=== PATIENT | male | born 1990 | race Caucasian/White ===

== ENCOUNTER 2016-05-31 20:49 | Emergency (ER) | payer SELFPAY ==
[2016-05-31] MEDS ORDERED: Lidocaine 1% with EPINEPHrine 1:100,000 20 ML MDV INJECT ONE (21:20)
--- NOTE | 2016-05-31 21:59 | EDM.PDOC ---
ED HPI Skin/Rash - General Chief Complaint: Laceration Stated Complaint: LACERATION LT ARM Time Seen by Provider: 05/31/16 21:00 Source: Reports: Patient History Limitations: Reports: No limitations - History of Present Illness INITIAL COMMENTS - FREE TEXT/NARRATIVE: HISTORY AND PHYSICAL: History of present illness: Patient is a 25-year-old male who presents to the emergency department with a laceration to the left arm. He states he was removing a chimney and part of it fell down from a high height and cut his arm. He is not having any pain with range of motion and does not feel like it's fractured. 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 There is no other injury. He thinks his tetanus is up-to-date. Review of systems: As per history of present illness and below otherwise all systems reviewed and negative. Past medical history: As per history of present illness and as reviewed below otherwise noncontributory. Surgical history: As per history of present illness and as reviewed below otherwise noncontributory. Social history: No reported history of drug or alcohol abuse. Family history: As per history of present illness and as reviewed below otherwise noncontributory. Physical exam: HEENT: Atraumatic, normocephalic, pupils reactive. Lungs: Clear to auscultation, breath sounds equal bilaterally. Heart: Regular rate and rhythm with normal peripheral pulses. Abdomen: Soft, nondistended, nontender. Extremities: Approximately 5cm horizontal, linear laceration of the dorsal left forearm through subcutaneous tissue that is not bleeding currently and is not contaminated. No muscle or fascial injury and visible tendon or nerve injury. Normal range of motion of the left arm. 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 Neuro: Awake, alert, oriented. Motor and sensory unremarkable throughout. Exam nonfocal. Impression: Left arm laceration Definitive disposition and diagnosis as appropriate pending reevaluation and review of above. - Related Data Allergies Allergy/AdvReac Type Severity Reaction Status Date / Time No Known Allergies Allergy Verified 05/31/16 22:06 Home Meds: Ambulatory Orders Medication Instructions Recorded Confirmed DULoxetine [Cymbalta] 90 mg PO DAILY 05/30/14 04/18/16 Iron Pill 1 tab PO DAILY 05/30/14 01/23/16 LORazepam 0.5 mg PO 01/23/16 Past Medical History - Past Health History Medical/Surgical History: Denies Medical/Surgical History HEENT History: Reports: None Cardiovascular History: Reports: None Respiratory History: Reports: None Gastrointestinal History: Reports: None Genitourinary History: Reports: None Musculoskeletal History: Reports: None Neurological History: Reports: None Psychiatric History: Reports: Anxiety, Depression Endocrine/Metabolic History: Reports: None Hematologic History: Reports: None Oncologic (Cancer) History: Reports: None - Infectious Disease History Infectious Disease History: Reports: Human papilloma virus (HPV) - Past Surgical History Male Surgical History: Reports: None Social & Family History - Family History Family Medical History: Noncontributory - Tobacco Use Smoking Status *Q: Former Smoker Years of Tobacco use: 10 Packs/Tins Daily: 1 - Caffeine Use Caffeine Use: Reports: Coffee, Energy drinks, Soda, Tea Other Caffeine Use: unknown - Alcohol Use Days Per Week of Alcohol Use: 0 - Recreational Drug Use Recreational Drug Use: No ED ROS GENERAL - Review of Systems Review Of Systems: ROS reveals no pertinent complaints other than HPI. ED EXAM, SKIN/RASH Exam: See Below (See HPI) ED SKIN PROCEDURES - Laceration/Wound Repair Left Lower Proximal Dorsal Arm Lac/wound length in cm: 5 Appearance: subcutaneous, linear, clean Distal NVT: neuro & vascular intact, no tendon injury Anesthetic type: local Local anesthesia - Lidocaine (Xylocaine): 1% with epi Local anesthetic volume: other (8) Skin prep: chlorhexidine (hibiciens), saline Saline irrigation (cc's): 250 Exploration/Debridement/Repair: wound explored, in a bloodless field, no foreign material found Suture size: 4-0 (ethilon) # of sutures: 7 Suture type: mattress (6 horizontal mattress, 1 simple interrupted) Course - Vital Signs Last Recorded V/S: Last Vital Signs Temp 36.8 C 05/31/16 20:55 Pulse 87 05/31/16 22:45 Resp 18 05/31/16 22:45 BP 200/154 H 05/31/16 22:45 Pulse Ox 96 05/31/16 22:45 - Orders/Labs/Meds Meds: Medications Discontinued Medications Generic Name Dose Route Start Last Admin Trade Name Freq PRN Reason Stop Dose Admin Bacitracin 1 dose 05/31/16 22:30 05/31/16 22:46 Bacitracin Oint 1 Gm TOP 05/31/16 22:31 1 dose ONETIME ONE Administration Lidocaine/Epinephrine 20 ml 05/31/16 21:20 05/31/16 21:26 Xylocaine 1% With Epinephrine 1:100,000 INJECT 05/31/16 21:21 20 ml ONETIME ONE Administration Departure - Departure Time of Disposition: 21:57 Disposition: Home, Self-Care 01 Condition: good Clinical Impression: Arm laceration Qualifiers: Encounter type: initial encounter Laterality: left Qualified Code(s): S41.112A - Laceration without foreign body of left upper arm, initial encounter Instructions: Laceration Care, Adult, [id number] Referrals: PCP,None [Primary Care Provider] - Forms: ED Department Discharge Additional Instructions: Return to the ED or follow up with your doctor in 7-10 days for suture removal. Return sooner for signs of infection as discussed. Do not soak the wound, but wash and dry it daily and keep it clean and dry.
[2016-05-31] MEDS ORDERED: Bacitracin Oint 1 GM U/D Packet TOP ONE (22:30)
[2016-05-31 22:46] VITALS: BP 200/154
== END 2016-05-31 22:45 | disposition home or self-care (01) ==
LOC: MW.ED 20:49
DX: S41.112A Laceration without foreign body of left upper arm, initial encounter (principal); Z87.891 Personal history of nicotine dependence; W45.8XXA Other foreign body or object entering through skin, initial encounter
CPT/HCPCS: 12002; 99282; 99283